=== PATIENT | female | born 1995 | race Caucasian/White ===

== ENCOUNTER 2017-11-01 14:20 | Day surgery (SDC) | payer OTHER, MEDICAID ==
[2017-11-01] MEDS: SODIUM CHLORIDE 0.9% 1L IRRIG IRR
[2017-11-01] MEDS: LIDOCAINE 1%/EPI 30 ML INJ INJ
[2017-11-01] MEDS: BUPIVACAINE 0.25% (MPF) 30 ML INJ INJ
[~2017-11-01 14:20] MED LIST: CEFAZOLIN 2 GM/50 ML (PMX) 50 ML IVPB; PROPOFOL 200 MG INJ; SOD CHLORIDE 0.9% 1,000 ML IV
[2017-11-01] MEDS ORDERED: FENTAnyl 50 MCG/ML VIAL (18:51)
[2017-11-01] MEDS ORDERED: MIDAZOLAM 1 MG/ML 2 ML INJ (18:51)
[2017-11-01] MEDS ORDERED: PROPOFOL 20 ML (18:51)
[2017-11-01] MEDS ORDERED: KETOROLAC 30 MG INJ (18:51)
[2017-11-01] MEDS ORDERED: CEFAZOLIN 1 GM INJ (18:53)
[2017-11-01] MEDS ORDERED: LIDOCAINE 1%/EPI 30 ML INJ (19:00)
[2017-11-01] MEDS ORDERED: BUPIVACAINE 0.25% (MPF) 30 ML INJ (19:01)
[2017-11-01] MEDS ORDERED: IBUPROFEN 600 MG TAB PO (20:00)
[2017-11-01] MEDS ORDERED: ONDANSETRON 4 MG INJ IV (20:00)
[2017-11-01] MEDS: KETOROLAC 30 MG INJ IV (20:33)
== END 2017-11-01 21:10 | disposition home or self-care (01) ==
LOC: SDS 14:20
DX: D17.1 Benign lipomatous neoplasm of skin and subcutaneous tissue of trunk (principal); E78.5 Hyperlipidemia, unspecified
CPT/HCPCS: 21931; 88307